=== PATIENT | male | born 1940 | race Caucasian/White ===

== ENCOUNTER → 2019-07-14 15:55 | Outpatient (BNVA) | payer MEDICARE, MEDICAID, SELFPAY | PROVIDERS: PCP Nurse Practitioner Family; Visit Provider Internal Medicine Cardiovascular Disease | DX: I48.91 Unspecified atrial fibrillation (principal); Z79.01 Long term (current) use of anticoagulants | CPT/HCPCS: 80053; 85025 ==

== ENCOUNTER 2020-07-16 03:09 | Emergency (ER) | payer MEDICARE, MEDICAID, SELFPAY ==
[2020-07-16 03:14] VITALS: BP 138/64; PULSE 80; RESP 18; TEMP 36.7; O2SAT 96; BMI 23.0
--- NOTE | 2020-07-16 03:17 | ED_ITS ---
HPI - Epistaxis General: Chief complaint: Epistaxis Stated complaint: nosebleed Time Seen by Provider: 07/16/20 03:11 Source: patient Mode of arrival: ambulatory Limitations: no limitations History of Present Illness: HPI Narrative: 8-year-old male states he has been having intermittent nosebleeds for last week. He states had a nosebleed night that is since resolved. I will see any active or dried blood at this time. He denies any injuries. He is on blood thinners. Denies any worsening improving factors. MD complaint: epistaxis Associated symptoms: Deny fever(s), headache(s) or vomiting Review of Systems Const: Denies: fever(s), chills, body aches or change in appetite Eyes: Denies: blurry vision or eye discomfort ENMT: Reports: epistaxis Card: Denies: chest pain Resp: Denies: dyspnea GI: Denies: abdominal pain, nausea, vomiting or diarrhea : Denies: dysuria Musc: Denies: neck pain or back pain Skin/Breast: Denies: rash Neuro: Denies: headache(s) Psych: Denies: depression Yaya/Lymph: Denies: easy bruising All/Imm: Denies: urticaria PFSH ED PFSH: Medical History (Updated 07/16/20 @ 03:41 by Mckenzie Turpin MD) Atrial fibrillation by electrocardiogram CAD (coronary artery disease) Hyperlipidemia Hypertension Pacemaker Skin lesion Surgical History History of appendectomy Hx of laminectomy Family History Other CAD (coronary artery disease) Social History Smoking and tobacco status: former smoker Alcohol intake: never Physical Exam Const: COMMON NORMALS: no acute distress, patient oriented x3 and healthy appearing HENMT: COMMON NORMALS: normocephalic and atraumatic HEAD & SCALP: normocephalic and atraumatic OTHER: Do not see any dried blood in either nare nose bleeding controlled at this time. No drip down his throat of blood Eye: COMMON NORMALS: Equal, round and reactive pupils present and EOMs intact bilaterally PUPIL: Yes Equal, round and reactive pupils present Neck/C-Spine: COMMON NORMALS: full ROM and supple Chest: COMMONS NORMALS: normal inspection of the chest and normal palpation of entire chest wall Resp: COMMON NORMALS: normal respiratory effort, No retractions, No use of accessory muscles and clear to auscultation bilaterally AUSCULTATION: clear to auscultation bilaterally Cardio: COMMON NORMALS: regular rate, regular rhythm and No murmurs present (Cardio) RATE: regular rate RHYTHM: regular rhythm GI: COMMON NORMALS: Normal to inspection, nondistended, normoactive bowel sounds present, Soft to palpation, non-tender and no masses PALPATION: Yes Soft to palpation Extremity: COMMON NORMALS: normal to inspection and full ROM Neuro: COMMON NORMALS: patient oriented x3, moves all extremities and no focal motor deficits Psych: COMMON NORMALS: mental status grossly normal, Normal thought process present and cooperative THOUGHT PROCESS: Normal thought process present Skin: COMMON NORMALS: no rashes or lesions noted and no wounds GENERAL SKIN EXAM: no rashes or lesions noted Course Vital Signs: Vital signs: Vital Signs Temperature 98.1 F 07/16/20 03:56 Pulse Rate 61 07/16/20 03:56 Respiratory Rate 15 07/16/20 03:56 Blood Pressure 137/58 07/16/20 03:56 Pulse Oximetry 95 07/16/20 03:56 MDM - Epistaxis MDM Narrative: Medical decision making narrative: Patient presents here with a nosebleed that is resolved on its own. He is well-appearing here and stable for discharge. To get him instructions on how to stop his nosebleed if it begins again and if it worsens he is return to the ER. He understands and agrees this plan. Lab Data: Labs: Lab Results 07/16/20 Range/Units 03:23 PT 14.30 (12.1-14.9) SECO NDS INR 1.07 (0.8-1.2) Discharge Plan Discharge Patient Disposition: Home Clinical Impression: Epistaxis Condition: Stable Prescriptions: No Action metoprolol tartrate 25 mg tablet 25 mg PO BID RF: 0 atorvastatin 20 mg tablet 20 mg PO DAILY RF: 0 albuterol sulfate [ProAir HFA] 90 mcg/actuation HFA aerosol inhaler 2 puff INHALATION Q6H PRNRF: 0 alprazolam 0.5 mg tablet extended release 24 hr 0.5 mg PO DAILY PRNRF: 0 zolpidem [Ambien] 10 mg tablet 10 mg PO DAILY RF: 0 fluoxetine 20 mg capsule 20 mg PO DAILY RF: 0 omeprazole 40 mg capsule,delayed release(DR/EC) 40 mg PO DAILY RF: 0 mecobalamin (vitamin B12) 1,000 mcg tablet,disintegrating 1,000 mcg SUBLINGUAL DAILY RF: 0 tamsulosin [Flomax] 0.4 mg capsule 0.4 mg PO DAILY RF: 0 gabapentin PO TID RF: 0 cyclobenzaprine 10 mg tablet 10 mg PO TID RF: 0 apixaban [Eliquis] 5 mg tablet 5 mg PO BID 90 Days Qty: 180 RF: 3 Discharge Orders: Discharge ED (Routine); Ordered 07/16/20 Ordered By: Mckenzie Turpin Referrals: Sissy Garcia FNP [Primary Care Provider] - 1-3 days Discharge Diet: Advance as tolerated Discharge Activity: Resume usual activity Patient Instructions: Epistaxis (ED) Coding Level of Care Code ED [employer] for [employer] Fwd Exam Comprehensive
[2020-07-16] MEDS: oxymetazoline 0.05% Nasal Spray 15 mL 2 SPRAY NOSTRIL-B (03:19)
[2020-07-16 03:34] VITALS: BP 137/58; PULSE 64; RESP 17; O2SAT 94
[2020-07-16 03:45] LABS: INR 1.07 (0.8-1.2)
[2020-07-16 03:56] VITALS: BP 137/58; PULSE 61; RESP 15; TEMP 36.7; O2SAT 95
== END 2020-07-16 03:58 | disposition home or self-care (01) ==
PROVIDERS: Emergency Provider Emergency Medicine; PCP Nurse Practitioner Family
DX: R04.0 Epistaxis (principal); I25.10 Atherosclerotic heart disease of native coronary artery without angina pectoris; I48.91 Unspecified atrial fibrillation; E78.5 Hyperlipidemia, unspecified; I10 Essential (primary) hypertension; Z95.0 Presence of cardiac pacemaker; Z87.891 Personal history of nicotine dependence
CPT/HCPCS: 85610; 99282

== ENCOUNTER → 2020-10-20 11:10 | Outpatient (BNVA) | payer MEDICARE, MEDICAID, SELFPAY | PROVIDERS: PCP Nurse Practitioner Family; Visit Provider Internal Medicine Cardiovascular Disease | DX: M79.89 Other specified soft tissue disorders (principal); I50.33 Acute on chronic diastolic (congestive) heart failure; R06.02 Shortness of breath; Z95.0 Presence of cardiac pacemaker; I10 Essential (primary) hypertension; E78.2 Mixed hyperlipidemia; I25.10 Atherosclerotic heart disease of native coronary artery without angina pectoris; I48.91 Unspecified atrial fibrillation | CPT/HCPCS: 80048; 83880 ==

== ENCOUNTER 2020-12-06 15:53 | Emergency (ER) | payer MEDICARE, MEDICAID, SELFPAY ==
[2020-12-06 17:01] VITALS: BP 112/78; PULSE 93; RESP 18; TEMP 36.9; O2SAT 91; BMI 23.0
--- NOTE | 2020-12-06 19:11 | XRR_ITS ---
PROCEDURE INFORMATION: Exam: XR Chest Exam date and time: 12/06/2020 7:11 PM Age: 80 years old Clinical indication: Shortness of breath; Additional info: Dyspnea, covid TECHNIQUE: Imaging protocol: XR of the chest. Views: 1 view. COMPARISON: CR Chest 2 views* [id number] 06/25/2014 11:39 AM FINDINGS: Tubes, catheters and devices: Stable left pacemaker. Lungs: Interval appearance of mild bilateral peripheral pulmonary opacities consistent with mild Covid-19 pneumonia which is usually better visualized on CT scan. Stable right calcified hilar nodes and/or mediastinal nodes and/or lung nodules consistent with old granulomatous disease. Pleural spaces: Unremarkable. No pleural effusion. No pneumothorax. Heart/Mediastinum: Unremarkable. No cardiomegaly. Bones/joints: Moderate right primary glenohumeral osteoarthritis. XR/XR chest 1V portable [id number] IMPRESSION: Interval appearance of mild bilateral peripheral pulmonary opacities consistent with mild Covid-19 pneumonia which is usually better visualized on CT scan.
--- NOTE | 2020-12-06 22:39 | W.ED.COVID ---
HPI - COVID General: Chief Complaint: COVID symptoms Stated Complaint: SOB, weakness, COVID + Time Seen by Provider: 12/06/20 22:11 Triage information: Has fever, cough or shortness of breath. Exposure to COVID + person last 14 days History of Present Illness: HPI Narrative: 80-year-old male presents emergency room with complaints of shortness of breath difficulty eating today. He is not usually on oxygen does have a history of COPD. He has had some myalgias low-grade fevers headache and a nonproductive cough. He had some diarrhea initially but this resolved. He states he tested positive yesterday. MD complaint: known COVID positive Prior covid testing: yes, results known Prior testing date: 12/05/20 COVID 19 common symptoms: positive fever(s), chills, non-productive cough and dyspnea; negative productive cough, throat pain, nasal congestion, nausea, vomiting or diarrhea COVID 19 other sytmptoms: negative chest pain Onset (ago): day(s) Severity: mild Pertinent comorbid conditions: hypertension and COPD/respiratory disease Treatment prior to arrival: none COVID Results: SARS-CoV-2 Antigen (Rapid) Positive (Negative) H 12/07/20 00:46 12/07/20 Review of Systems Const: Reports: fever(s) and chills ENMT: Denies: throat pain, ear or mastoid pain, nasal discharge or nasal congestion Card: Denies: chest pain, edema, dyspnea on exertion or orthopnea Resp: Reports: dyspnea and non-productive cough; Denies: productive cough GI: Denies: abdominal pain, nausea, vomiting, hematemesis, coffee ground emesis, diarrhea, constipation, bloating, hematochezia or melena : Denies: flank pain, dysuria, urinary frequency or urinary urgency Skin/Breast: Denies: rash or pruritus PFSH ED PFSH: Medical History (Updated 12/11/20 @ 13:28 by Shin Fuentes DO) Atrial fibrillation by electrocardiogram CAD (coronary artery disease) Hyperlipidemia Hypertension Pacemaker Skin lesion Surgical History History of appendectomy Hx of laminectomy Family History Sister Clotting disorder Lung disease Cancer Brother Cancer Lung disease Diabetes Daughter Diabetes Lung disease Mother Diabetes Grandfather Stroke Denies family history of CAD (coronary artery disease) Dementia Chronic kidney disease (CKD) Suicide Anesthesia complication Bleeding disorder Social History Smoking and tobacco status: former smoker Alcohol intake: never Physical Exam Const: COMMON NORMALS: no acute distress GENERAL APPEARANCE: cooperative and comfortable HENMT: COMMON NORMALS: normocephalic, atraumatic and hearing grossly normal bilaterally HEAD & SCALP: normocephalic and atraumatic Eye: COMMON NORMALS: Equal, round and reactive pupils present, EOMs intact bilaterally, conjunctivae normal and no scleral icterus CONJUNCTIVA: Yes conjunctivae normal PUPIL: Yes Equal, round and reactive pupils present Neck/C-Spine: COMMON NORMALS: full ROM, no lymphadenopathy, supple and no JVD Lymph: LYMPHATIC: no lymphadenopathy noted and no lymphedema noted Resp: COMMON NORMALS: normal respiratory effort, No retractions, No use of accessory muscles and clear to auscultation bilaterally AUSCULTATION: clear to auscultation bilaterally Cardio: COMMON NORMALS: no JVD, regular rate, regular rhythm and No murmurs present (Cardio) RATE: regular rate RHYTHM: regular rhythm GI: COMMON NORMALS: Soft to palpation and No hepatosplenomegaly present AUSCULTATION: Yes normoactive bowel sounds PALPATION: Yes Soft to palpation, No Tenderness to palpation present (GI), No Guarding due to palpation present (GI) and Yes No hepatosplenomegaly present Extremity: COMMON NORMALS: normal to inspection, capillary refill normal, no clubbing, cyanosis or edema, no calf tenderness and no pedal edema Skin: COMMON NORMALS: no rashes or lesions noted GENERAL SKIN EXAM: no rashes or lesions noted Course Vital Signs: Vital signs: Vital Signs Temperature 98.3 F 12/07/20 02:47 Pulse Rate 61 12/07/20 02:47 Respiratory Rate 16 12/07/20 03:00 Blood Pressure 92/35 12/07/20 03:00 Pulse Oximetry 93 12/07/20 03:00 MDM - COVID MDM Narrative: Medical decision making narrative: Patient started on remdesivir dexamethasone he will need to be hospitalized arrangements made for transfer no bed available at our facility at this time Lab Data: Labs: Lab Results 12/06/20 12/06/20 12/06/20 Range/Units 23:15 23:15 23:15 WBC 4.9 (4.0-10.0) 10^3/ uL RBC 5.89 H (4.1-5.3) 10^6/u L Hgb 17.3 H (11.7-16.6) g/dL Hct 51.0 (42.0-52.0) % MCV 86.6 (80-94) fL MCH 29.4 (28.0-34.0) pg MCHC 33.9 (30.0-36.0) g/dL RDW 13.0 (12.1-15.1) % Plt Count 156 (130-400) 10^3/c mm MPV 12.0 H (7.4-10.4) fL Neut % (Auto) 66.3 % Lymph % (Auto) 24.7 % [place] % (Auto) 8.4 % Eos % (Auto) 0.0 % Baso % (Auto) 0.2 % Neut # (Auto) 3.25 (1.8-7.7) 10^3/u L Lymph # (Auto) 1.2 (0.8-4.8) 10^3/u L [place] # (Auto) 0.4 (0.2-0.9) 10^3/u L Eos # (Auto) 0.0 (0.0-0.8) 10^3/u L Baso # (Auto) 0.0 (0.0-0.1) 10^3/u L Nucleated RBC % (a uto) 0 % Nucleated RBCs # 0.0 /100WBC PT 13.10 (12.1-14.9) SECO NDS INR 0.97 (0.8-1.2) APTT 31.6 (23.9-36.7) SECO NDS Fibrinogen 553 H (174-498) mg/dL D-Dimer 1.09 H (0-0.59) ug/mIFE U Sodium 131 L (136-145) mmol/L Potassium 4.5 (3.5-5.1) mmol/L Chloride 91 L (98-107) mmol/L Carbon Dioxide 22 (22-29) mmol/L Anion Gap 22.5 H (5-19) BUN 20 (8-23) mg/dL Creatinine 1.0 (0.7-1.2) mg/dL GFR Calculation Not Reportable Glucose 97 (65-115) mg/dL Calculated Osmolal ity 275 L (285-295) mOsm/k g Lactic Acid (0.5-2.2) mmol/L Calcium 8.5 (8.5-10.5) mg/dL Magnesium 2.0 (1.7-2.3) mg/dL Ferritin 1375 H (30-400) ng/mL Total Bilirubin 0.7 (0.15-1.2) mg/dL AST 49 H (0-40) U/L ALT 18 (0-41) U/L Alkaline Phosphata se 89 (40-130) IU/L Creatine Kinase 677 H* (39-308) U/L Troponin T Gen 5 n g/L (0-15) ng/L C-Reactive Protein 19.6 H (0.0-4.9) mg/L NT-Pro-B Natriuret Pep 418 (0-450) pg/mL Total Protein 6.8 (6.6-8.7) g/dL Albumin 4.1 (3.5-5.2) g/dL Globulin 2.7 (1.3-4.6) g/dL Procalcitonin 0.11 (0-0.5) ng/mL SARS-CoV-2 Ag (Rap id) (Negative) 12/06/20 12/06/20 12/07/20 Range/Units 23:15 23:15 00:46 WBC (4.0-10.0) 10^3/ uL RBC (4.1-5.3) 10^6/u L Hgb (11.7-16.6) g/dL Hct (42.0-52.0) % MCV (80-94) fL MCH (28.0-34.0) pg MCHC (30.0-36.0) g/dL RDW (12.1-15.1) % Plt Count (130-400) 10^3/c mm MPV (7.4-10.4) fL Neut % (Auto) % Lymph % (Auto) % [place] % (Auto) % Eos % (Auto) % Baso % (Auto) % Neut # (Auto) (1.8-7.7) 10^3/u L Lymph # (Auto) (0.8-4.8) 10^3/u L [place] # (Auto) (0.2-0.9) 10^3/u L Eos # (Auto) (0.0-0.8) 10^3/u L Baso # (Auto) (0.0-0.1) 10^3/u L Nucleated RBC % (a uto) % Nucleated RBCs # /100WBC PT (12.1-14.9) SECO NDS INR (0.8-1.2) APTT (23.9-36.7) SECO NDS Fibrinogen (174-498) mg/dL D-Dimer (0-0.59) ug/mIFE U Sodium (136-145) mmol/L Potassium (3.5-5.1) mmol/L Chloride (98-107) mmol/L Carbon Dioxide (22-29) mmol/L Anion Gap (5-19) BUN (8-23) mg/dL Creatinine (0.7-1.2) mg/dL GFR Calculation Glucose (65-115) mg/dL Calculated Osmolal ity (285-295) mOsm/k g Lactic Acid 1.3 (0.5-2.2) mmol/L Calcium (8.5-10.5) mg/dL Magnesium (1.7-2.3) mg/dL Ferritin (30-400) ng/mL Total Bilirubin (0.15-1.2) mg/dL AST (0-40) U/L ALT (0-41) U/L Alkaline Phosphata se (40-130) IU/L Creatine Kinase (39-308) U/L Troponin T Gen 5 n g/L 26 H (0-15) ng/L C-Reactive Protein (0.0-4.9) mg/L NT-Pro-B Natriuret Pep (0-450) pg/mL Total Protein (6.6-8.7) g/dL Albumin (3.5-5.2) g/dL Globulin (1.3-4.6) g/dL Procalcitonin (0-0.5) ng/mL SARS-CoV-2 Ag (Rap id) Positive H (Negative) COVID Results: SARS-CoV-2 Antigen (Rapid) Positive (Negative) H 12/07/20 00:46 12/07/20 Discharge Plan Discharge Patient Disposition: Xfer Short-Term Hosp Clinical Impression: Pneumonia due to 2019-nCoV, Atrial fibrillation by electrocardiogram, CAD (coronary artery disease), Hypertension Referrals: Sissy Garcia FNP [Primary Care Provider] - Coding Level of Care Code ED Sod Stripper for Chg Fwd Exam Comprehensive
[2020-12-06 23:04] VITALS: BP 120/63; PULSE 70; RESP 17; O2SAT 95
[2020-12-06 23:31] LABS: Basophils % 0.2 %; Hemoglobin 17.3 g/dL (11.7-16.6); Lymphocytes # 1.2 10^3/uL (0.8-4.8); Lymphocytes % 24.7 %; Mean Corpuscular HGB Conc 33.9 g/dL (30.0-36.0); Mean Corpuscular Hemoglobin 29.4 pg (28.0-34.0); Mean Corpuscular Volume 86.6 fL (80-94); Monocytes # 0.4 10^3/uL (0.2-0.9); Monocytes % 8.4 %; Neutrophils # 3.25 10^3/uL (1.8-7.7); Neutrophils % 66.3 %; Nucleated Red Blood Cells % 0 %; Platelet Count 156 10^3/cmm (130-400); Red Blood Count 5.89 10^6/uL (4.1-5.3); White Blood Count 4.9 10^3/uL (4.0-10.0)
[2020-12-06 23:37] LABS: INR 0.97 (0.8-1.2)
[2020-12-06 23:38] LABS: Fibrinogen 553 mg/dL (174-498); Partial Thromboplastin Time 31.6 SECONDS (23.9-36.7)
[2020-12-06 23:41] LABS: D Dimer 1.09 ug/mIFEU (0-0.59)
[2020-12-06 23:44] LABS: Lactic Sepsis W/Reflex 1.3 mmol/L (0.5-2.2)
[2020-12-06 23:46] LABS: Troponin T (5th) Once 26 ng/L (0-15)
[2020-12-06 23:55] LABS: NT Pro B Type Natriuretic Pept 418 pg/mL (0-450); Procalcitonin 0.11 ng/mL (0-0.5)
[2020-12-07] VITALS (7 sets, daily range): BP systolic 92–111; BP diastolic 35–75; PULSE 61–68; RESP 16–17; TEMP 36.8; O2SAT 83–96
[2020-12-07 00:07] LABS: Alanine Aminotransferase 18 U/L (0-41); Albumin Level 4.1 g/dL (3.5-5.2); Alkaline Phosphatase 89 IU/L (40-130); Anion Gap 22.5 (5-19); Aspartate Amino Transferase 49 U/L (0-40); Blood Urea Nitrogen 20 mg/dL (8-23); C Reactive Protein 19.6 mg/L (0.0-4.9); Calcium 8.5 mg/dL (8.5-10.5); Carbon Dioxide 22 mmol/L (22-29); Chloride 91 mmol/L (98-107); Creatinine Clr Calc Pharmacy 64.5037; Globulin 2.7 g/dL (1.3-4.6); Glucose 97 mg/dL (65-115); Osmolality Calculated 275 mOsm/kg (285-295); Potassium 4.5 mmol/L (3.5-5.1); Sodium 131 mmol/L (136-145); Total Bilirubin 0.7 mg/dL (0.15-1.2); Total Protein 6.8 g/dL (6.6-8.7)
[2020-12-07 00:13] LABS: Creatine Phosphokinase 677 U/L (39-308)
[2020-12-07 00:20] LABS: Ferritin 1375 ng/mL (30-400)
[2020-12-07 01:21] LABS: SARS Covid-2 Antigen Positive (Negative)
[2020-12-07] MEDS: sodium chloride 0.9% 1,000 ML 999 ML IV (01:29)
[2020-12-07] MEDS: dexamethasone 4 mg/mL INJ 6 MG IVP (01:29)
[2020-12-07] MEDS: remdesivir 200 MG in sodium chloride 0.9% (100 ml) 100 ML 100 MG IV (02:09)
== END 2020-12-07 04:06 | disposition short-term general hospital (02) ==
PROVIDERS: Nurse Practitioner Family; Emergency Provider Family Medicine; PCP Nurse Practitioner Family
DX: U07.1 COVID-19 (principal); J12.82 Pneumonia due to coronavirus disease 2019; I48.91 Unspecified atrial fibrillation; I10 Essential (primary) hypertension; I25.10 Atherosclerotic heart disease of native coronary artery without angina pectoris; J44.9 Chronic obstructive pulmonary disease, unspecified; E78.5 Hyperlipidemia, unspecified; Z95.0 Presence of cardiac pacemaker; Z87.891 Personal history of nicotine dependence
CPT/HCPCS: 71045; 80053; 82550; 82728; 83605; 83735; 83880; 84145; 84484; 85025; 85378; 85384; 85610; 85730; 86140; 87040; 87426; 96365; 96375; 99285; J1100; J7030